=== PATIENT | female | born 1950 | race Caucasian/White ===

== ENCOUNTER → 2017-09-17 | Outpatient (CLI) | payer MEDICARE, OTHER ==
[2015-05-09 15:32] VITALS: BMI 30.2
[~2017-09-17] MED LIST: ASPI81TA94 PO; CELE100C79 PO; CHOL200021 PO; METF-409; METF-410 PO; ONDA4TAB SL; PER PO; SIMV10TA98
--- NOTE | 2017-09-17 11:13 | RADIOLOGY IMAGING REPORT ---
FACILITY: [facility] PATIENT NAME: Sheyla Grajeda : 1950 MR: [id number] V: [id number] EXAM DATE: ORDERING PHYSICIAN: JEAN-PAUL RAMSEY TECHNOLOGIST: Location: [facility] [place] Patient: Sheyla Grajeda : 1950 Visit/Account:[id number] Date of Sevice: 09/17/2017 DEXA Scan Clinical history: Post menopausal. Comparison: DEXA scan from 2009. Hip: Bone mineral density measured in the right total hip correlates with a Z score of 1.7 and a T score o f 0.6 which is normal as defined by the World Health Organization. The corresponding risk of fractur e in the hip is not increased compared to a young adult reference population. This value has decreas ed by 3.6% since the prior study. Bone mineral density measured in the right femoral neck is -0.2. The T score of the right femoral ne ck is -0.2 HIP: Bone mineral density (BMD) measured in the LEFT total hip region correlates with a Z-score 1.6 and a T-score of 0.5 which is normal as defined by the World Health Organization. The corresponding risk of fracture in the hip is Not i ncreased compared to a young adult reference population. This value has decreased by 1.5 % since the prior study. More than 5% change is considered significant. T score left femoral neck -0.5 Bone mineral density (BMD) measured in the Femoral Neck region measures 0.971 g/cm?. IMPRESSION: 1. Right hip: Normal. There has been 3.6% decrease in the bone mineral density since the previous e xam. 2. Left Total Hip: Normal. There has been 1.5% decrease in the bone mineral density since the previ ous exam. 3. Femoral Neck: Bone Mineral Density is 0.971 g/cm? The next DEXA scan of this patient should include the following sites: L1-L4 and the left hip. FRAX? WHO Fracture Risk Assessment Tool link: <http://www.shef.ac.uk/FRAX/tool.jsp?locationValue=9> T-score Normal > -1 Osteopenia < -1 and > -2.5 Osteoporosis < -2.5 without fractures Established osteoporosis < -2.5 with fractures 2) In general, you may wish to consider: Diagnosis Treatment Follow-up DEXA Normal BMD Prevention 2-3 years Osteopenia Prevention/therapy 1-2 years Osteoporosis Therapy Yearly 3) Fracture risk estimated from the T-score is more accurate for vertebral fractures (often spontane ous) than for hip fractures. . Report Dictated By: Pamela Aguilar MD at 09/17/2017 11:06 AM Report E-Signed By: Pamela Aguilar MD at 09/17/2017 11:10 AM WSN:[id number]
--- NOTE | 2017-09-21 16:37 | RADIOLOGY IMAGING REPORT ---
[place] [facility] [place] POLA KUMAR : [id number] MR: [id number] V: [id number] EXAM DATE: [id number] ORDERING PHYSICIAN: JEAN-PAUL RAMSEY TECHNOLOGIST: Jayla Parmar PROCEDURE:BILATERAL DIGITAL SCREENING MAMMOGRAM WITH CAD ASSISTED INTERPRETATION AND 3D BREAST TOMOSYNTHESIS. COMPARISON:Prior mammograms dated 06/25/16 and 04/25/14. INDICATIONS:SCREENING FINDINGS: A small to moderate amount of fibroglandular tissue is seen throughout the breasts. The parenchymal pattern has remained stable when allowing for difference in mammographic technique and patient positioning. There is no evidence of malignant appearing mass, malignant appearing calcification or other secondary sign of malignancy in either breast. DIAGNOSTIC CATEGORY 1--NEGATIVE. RECOMMENDATIONS: ROUTINE MAMMOGRAM AND CLINICAL EVALUATION. IMPRESSION Bi-RADS 1: No significant abnormality is seen. Images were reviewed with R2CAD and 3D breast tomosynthesis. Dictated by: Pamela Aguilar M.D. on 09/17/2017 at 11:30 Transcribed by: KATHY on 09/17/2017 at 16:03 Approved by: Pamela Aguilar M.D. on 09/21/2017 at 16:36 [facility]
== END ==
LOC: MAMO 02:55
PROVIDERS: ATTEND Obstetrics & Gynecology
DX: Z13.820 Encounter for screening for osteoporosis (principal); Z12.31 Encounter for screening mammogram for malignant neoplasm of breast; Z78.0 Asymptomatic menopausal state
CPT/HCPCS: 77063; 77080; G0202; 77067

== ENCOUNTER → 2018-03-16 | Outpatient (CLI) | payer MEDICARE, OTHER ==
[2015-05-09 15:32] VITALS: BMI 30.2
[~2018-03-16] MED LIST changes: +ESTR42.5 TP; -METF-410 PO; +METF-411 PO; +OXYB5TAB80 PO; +TOLT2CAP7 PO
== END ==
LOC: LAB 14:15
PROVIDERS: ATTEND Obstetrics & Gynecology
DX: E11.9 Type 2 diabetes mellitus without complications (principal); R39.15 Urgency of urination; R82.79 Other abnormal findings on microbiological examination of urine
CPT/HCPCS: 36415; 81001; 83036; 87088